=== PATIENT | male | born 1965 | race Caucasian/White ===

== ENCOUNTER 2017-11-16 18:20 | Emergency (ER) | payer OTHER ==
[2017-11-16 21:54] LABS: BASO % 0.4 % (0.0-1.0); EOS # 0.2 10^3/uL (0.0-0.50); EOS % 2.6 % (0.0-3.0); HEMOGLOBIN 14.5 g/dl (14.0-18.0); IMMATURE GRANULOCYTE % 0.1 % (0-0); LYMPH # 2.6 10^3/uL (1.5-4.5); LYMPH % 33.6 % (24.0-44.0); MEAN CORPUSCULAR HEMOGLOBIN 30.5 pg (27.0-33.0); MEAN CORPUSCULAR HGB CONC 35.4 g/dl (32.0-36.5); MEAN CORPUSCULAR VOLUME 86.3 fl (80.0-96.0); MONO # 0.7 10^3/uL (0.0-0.8); MONO % 8.7 % (0.0-5.0); NEUTROPHILS # 4.1 10^3/uL (1.8-7.7); NEUTROPHILS % 54.6 % (36.0-66.0); PLATELET COUNT, AUTOMATED 196 10^3/uL (150-450); RED BLOOD COUNT 4.75 10^6/uL (4.30-6.10); RED CELL DISTRIBUTION WIDTH 14.1 % (11.5-14.5); WHITE BLOOD COUNT 7.6 10^3/uL (4.0-10.0)
[2017-11-16 22:12] LABS: ERYTHROCYTE SEDIMENTATION RATE 24 mm/hr (0-20)
[2017-11-16 22:24] LABS: ALBUMIN 4.4 GM/DL (3.2-5.2); ALBUMIN/GLOBULIN RATIO 1.07 (1.00-1.93); ALKALINE PHOSPHATASE 68 U/L (45-117); ALT/SGPT 38 U/L (12-78); ANION GAP 5 MEQ/L (8-16); AST/SGOT 23 U/L (7-37); BILIRUBIN,TOTAL 0.4 MG/DL (0.2-1.0); BLOOD UREA NITROGEN 16 MG/DL (7-18); CARBON DIOXIDE LEVEL 32 MEQ/L (21-32); CHLORIDE LEVEL 101 MEQ/L (98-107); GLOMERULAR FILTRATION RATE > 60.0 (>56); GLUCOSE, FASTING 91 MG/DL (70-100); POTASSIUM SERUM 4.1 MEQ/L (3.5-5.1); SODIUM LEVEL 138 MEQ/L (136-145); TOTAL PROTEIN 8.5 GM/DL (6.4-8.2)
[2017-11-16] MEDS: PERCOCET 5MG/325MG TAB PO (23:15)
== END 2017-11-17 00:10 | disposition home or self-care (01) ==
LOC: M ED 11-17 00:10
DX: R91.1 Solitary pulmonary nodule (principal); M25.511 Pain in right shoulder
CPT/HCPCS: 71046

== ENCOUNTER → 2019-04-27 | Outpatient (REF) | payer OTHER, MEDICAID ==
[~2019-04-27] MED LIST: ALBU83IN INH; PERC5TAB12 PO; PRED20TA PO; VENTAER; ZITHTAB PO
[2019-04-27 19:46] LABS: BASO % 0.5 % (0.0-1.0); EOS # 0.2 10^3/uL (0.0-0.50); HEMATOCRIT 48.8 % (42.0-52.0); HEMOGLOBIN 16.8 g/dl (13.5-17.5); LYMPH % 24.7 % (24.0-44.0); MEAN CORPUSCULAR HEMOGLOBIN 30.1 pg (27.0-33.0); MEAN CORPUSCULAR HGB CONC 34.4 g/dl (32.0-36.5); MEAN CORPUSCULAR VOLUME 87.5 fl (80.0-96.0); MONO # 0.6 10^3/uL (0.0-0.8); MONO % 7.2 % (0.0-5.0); NEUTROPHILS # 5.1 10^3/uL (1.8-7.7); NEUTROPHILS % 65.2 % (36.0-66.0); PLATELET COUNT, AUTOMATED 218 10^3/uL (150-450); RED BLOOD COUNT 5.58 10^6/uL (4.30-6.10); WHITE BLOOD COUNT 7.9 10^3/uL (4.0-10.0)
[2019-04-27 20:24] LABS: HEMOGLOBIN A1c 5.7 %
[2019-04-27 20:26] LABS: ALBUMIN 4.5 GM/DL (3.2-5.2); ALT/SGPT 26 U/L (12-78); BILIRUBIN,TOTAL 0.4 MG/DL (0.2-1.0); BLOOD UREA NITROGEN 13 MG/DL (7-18); CALCIUM LEVEL 9.4 MG/DL (8.5-10.1); CARBON DIOXIDE LEVEL 32 MEQ/L (21-32); CHLORIDE LEVEL 101 MEQ/L (98-107); CHOLESTEROL LEVEL 214 MG/DL (<200); CHOLESTEROL RISK RATIO 4.976 (<5); CREATININE FOR GFR 1.12 MG/DL (0.70-1.30); FREE T4 0.97 NG/DL (0.76-1.46); GLOMERULAR FILTRATION RATE > 60.0 (>56); GLUCOSE, FASTING 79 MG/DL (70-100); HDL CHOLESTEROL 43 MG/DL (>40); LDL CHOLESTEROL 133 MG/DL (<100); NON-HDL-C 171 MG/DL; SODIUM LEVEL 138 MEQ/L (136-145); THYROID STIMULATING HORMONE 0.688 uIU/ML (0.358-3.740); TRIGLYCERIDES LEVEL 188 MG/DL (<150)
[2019-04-30 00:06] LABS: TESTOSTERONE FREE (DIRECT) 4.7 pg/mL (7.2-24.0)
== END ==
LOC: M LAB REF 18:40
PROVIDERS: ATTEND Nurse Practitioner Family
DX: Z13.9 Encounter for screening, unspecified (principal)

== ENCOUNTER 2021-03-15 08:14 | Emergency (ER) | payer MEDICAID, OTHER, SELFPAY ==
[~2021-03-15] VITALS: Ht 167.6 cm; Wt 92.1 kg
[2021-03-15] MEDS ORDERED: AMLO1TAB24 (08:23)
[2021-03-15] MEDS ORDERED: KETOROLAC 30 MG/ML 1ML VIAL IV ONE (08:55)
[2021-03-15] MEDS ORDERED: ASPIRIN 81 MG CHEW TABLET PO ONE (08:55)
--- NOTE | 2021-03-15 09:21 | REP ---
INDICATION: CHEST PAIN COMPARISON: 11/16/2017 TECHNIQUE: Portable AP view of the chest FINDINGS: The mediastinum and cardiac silhouette are stable and within normal limits for portable technique. The lung hooks are clear without acute consolidation, effusion, or pneumothorax. Stable calcified granuloma in the periphery of the left mid lung zone noted. Skeletal structures are intact. IMPRESSION: No acute cardiopulmonary process appreciated. Stable calcified granuloma in the left lung. <Electronically signed by Maycol Hartley > 03/15/21 0934
[2021-03-15 09:26] LABS: BASO # 0.1 10^3/uL (0.0-0.2); BASO % 0.7 % (0.0-1.0); EOS # 0.1 10^3/uL (0.0-0.5); EOS % 1.8 % (0.0-3.0); HEMATOCRIT 44.3 % (42.0-52.0); LYMPH # 1.3 10^3/uL (1.5-5.0); LYMPH % 18.6 % (24.0-44.0); MEAN CORPUSCULAR HEMOGLOBIN 29.5 pg (27.0-33.0); MEAN CORPUSCULAR HGB CONC 33.9 g/dl (32.0-36.5); MEAN CORPUSCULAR VOLUME 87.2 fl (80.0-96.0); MONO # 0.7 10^3/uL (0.0-0.8); MONO % 9.6 % (2.0-8.0); NEUTROPHILS # 4.9 10^3/uL (1.5-8.5); NEUTROPHILS % 68.9 % (36.0-66.0); PLATELET COUNT, AUTOMATED 238 10^3/uL (150-450); RED BLOOD COUNT 5.08 10^6/uL (4.30-6.10); WHITE BLOOD COUNT 7.2 10^3/uL (4.0-10.0)
--- NOTE | 2021-03-15 09:36 | ECGEPIP ---
[facility] - ED Test Date: 2021-03-15 Pat Name: JAVIER ANDERSON Department: Room: - Gender: Male Statistical Clerk: NESHA : 1965 Requested By: Dave Aragon Order Number: [id number] Reading MD: Dave Durham Measurements Intervals [place] Rate: 78 P: 47 MT: 140 QRS: -9 QRSD: 86 T: 23 QT: 360 QTc: 410 Interpretive Statements Normal sinus rhythm Minimal voltage criteria for LVH, may be normal variant ( R in aVL ) NONSPECIFIC T WAVE ABNORMALITY(S) NO PRIORS FOR COMPARISON Electronically Signed on 03-15-2021 9:36:30 EDT by Dave Durham
[2021-03-15 10:23] LABS: BLOOD UREA NITROGEN 11 MG/DL (7-18); CALCIUM LEVEL 8.3 MG/DL (8.5-10.1); CARBON DIOXIDE LEVEL 27 MEQ/L (21-32); CHLORIDE LEVEL 104 MEQ/L (98-107); CREATININE FOR GFR 0.83 MG/DL (0.70-1.30); GLOMERULAR FILTRATION RATE > 60.0 (>56); GLUCOSE, FASTING 98 MG/DL (70-100); POTASSIUM SERUM 4.3 MEQ/L (3.5-5.1); SODIUM LEVEL 137 MEQ/L (136-145)
[2021-03-15 12:00] VITALS: BP 136/82
== END 2021-03-15 12:11 | disposition home or self-care (01) ==
LOC: M ED 08:14
DX: R07.89 Other chest pain (principal); R51.9 Headache, unspecified; J84.10 Pulmonary fibrosis, unspecified; I10 Essential (primary) hypertension; J44.9 Chronic obstructive pulmonary disease, unspecified; F17.200 Nicotine dependence, unspecified, uncomplicated; Z79.51 Long term (current) use of inhaled steroids
CPT/HCPCS: 71045; 80047; 80048; 84484; 85025; 93005; 93041; 94760; 96374; 99285; J1885

== ENCOUNTER → 2021-04-25 | Outpatient (CLI) | payer OTHER, SELFPAY ==
[~2021-04-25] MED LIST changes: +AMLO1TAB24
--- NOTE | 2021-04-26 01:16 | REP ---
INDICATION: PAIN IN LEFT KNEE COMPARISON: None. TECHNIQUE: AP, lateral and sunrise views of the left knee FINDINGS: Examination is essentially age-appropriate. Minimal cortical irregularity at the femoral condyles noted. The tibiofemoral joint space appears relatively normal and without osteophytosis, chondrocalcinosis or joint space narrowing. Lateral and sunrise views demonstrate relatively normal appearance to the patellofemoral joint space. There is fraying along the anterior patellar margin raising the possibility of early quadriceps tendinopathy. No acute fracture or dislocation. No effusion. IMPRESSION: Relatively age-appropriate knee radiograph series. Mild changes as described above. <Electronically signed by Maycol Hartley > 04/26/21 0112
== END ==
LOC: M RAD 10:52
PROVIDERS: ATTEND Family Medicine Addiction Medicine
DX: M25.562 Pain in left knee (principal)

== ENCOUNTER 2022-02-07 15:14 | Emergency (ER) | payer OTHER ==
[~2022-02-07] VITALS: Ht 170.2 cm; Wt 93.3 kg
[2022-02-07] MEDS ORDERED: NAPR220C14 PO (15:35)
[2022-02-07 18:33] VITALS: BP 158/77
== END 2022-02-07 18:37 | disposition home or self-care (01) ==
LOC: M ED 15:14
DX: S90.31XA Contusion of right foot, initial encounter (principal); W20.8XXA Other cause of strike by thrown, projected or falling object, initial encounter; Y92.9 Unspecified place or not applicable; Y93.9 Activity, unspecified; Y99.0 Civilian activity done for income or pay; Z79.899 Other long term (current) drug therapy

== ENCOUNTER → 2023-02-11 | Outpatient (CLI) | payer OTHER ==
[~2023-02-11] MED LIST changes: +ALBU2.5V10 INH; -ALBU83IN INH; +NAPR220C14 PO
== END ==
LOC: M WUC 12:36
PROVIDERS: ATTEND Family Medicine Addiction Medicine
DX: M79.604 Pain in right leg (principal)

== ENCOUNTER 2023-06-27 12:24 | Emergency (ER) | payer OTHER ==
[~2023-06-27] VITALS: Ht 170.2 cm; Wt 91.0 kg
[2023-06-27] MEDS ORDERED: methylPREDNISolone 125MG 2ML VIAL IM ONE (16:10)
[2023-06-27] MEDS ORDERED: methocarbamoL 500 MG TAB PO ONE (16:10)
[2023-06-27] MEDS ORDERED: KETOROLAC 60MG 2ML VIAL IM ONE (16:10)
[2023-06-27] MEDS ORDERED: MEDR4PAK PO (18:49)
[2023-06-27] MEDS ORDERED: METH-1164 PO (18:49)
[2023-06-27 18:57] VITALS: BP 148/90; TEMP 97.2; O2SAT 97
== END 2023-06-27 19:01 | disposition home or self-care (01) ==
LOC: M ED 12:24
DX: M51.36 Other intervertebral disc degeneration, lumbar region (principal); M51.37 Other intervertebral disc degeneration, lumbosacral region; M47.816 Spondylosis without myelopathy or radiculopathy, lumbar region; I10 Essential (primary) hypertension; J44.9 Chronic obstructive pulmonary disease, unspecified; F12.10 Cannabis abuse, uncomplicated; Z79.52 Long term (current) use of systemic steroids; Z79.899 Other long term (current) drug therapy
CPT/HCPCS: 72131; 96372; 99283; J1885; J2930